=== PATIENT | male | born 1990 ===

== ENCOUNTER 2017-10-20 18:36 | Emergency (ER) | payer SELFPAY ==
--- NOTE | 2017-10-20 19:03 | UC ---
Skin Complaint HPI - HPI Summary HPI Summary: Pt presents with right ear pain and tenderness to right face/neck since yesterday. He also has a red spot on the mid-right side of his forehead. He says he has been under a lot of stress recently with work and general life stressors. He denies fever, chills, hearing loss, vision changes, bleeding, drainage, or recent illness. - History of Current Complaint Hx Obtained From: Patient Onset/Duration: Gradual Onset Timing: Constant Onset Severity: Mild Current Severity: Mild Pain Intensity: 3 Pain Scale Used: 0-10 Numeric <Awais Youssef - Last Filed: 10/21/17 17:18> <Puja Montes De Oca - Last Filed: 10/22/17 07:13> - History of Current Complaint Chief Complaint: UCEar Time Seen by Provider: 10/20/17 19:02 Stated Complaint: EAR AND NECK PAIN - Allergy/Home Medications Allergies/Adverse Reactions: Allergies Allergy/AdvReac Type Severity Reaction Status Date / Time No Known Allergies Allergy Verified 10/20/17 19:01 Review of Systems Constitutional: Negative Skin: Rash - Forehead Eyes: Negative ENT: Ear Ache - Right Respiratory: Negative Cardiovascular: Negative Gastrointestinal: Negative Neurological: Negative Psychological: Negative All Other Systems Reviewed And Are Negative: Yes <Awais Youssef - Last Filed: 10/21/17 17:18> PMH/Surg Hx/FS Hx/Imm Hx Previously Healthy: Yes - Surgical History Surgical History: None - Social History Occupation: Employed Full-time Lives: Alone Alcohol Use: Occasionally Substance Use Type: None Smoking Status (MU): Heavy Every Day Tobacco Smoker <Awais Youssef - Last Filed: 10/21/17 17:18> Physical Exam Triage Information Reviewed: Yes Appearance: Well-Appearing, No Pain Distress, Well-Nourished Vital Signs: Initial Vital Signs Temp 98.1 F 10/20/17 18:57 Pulse 65 10/20/17 18:57 Resp 20 10/20/17 18:57 BP 125/43 10/20/17 18:57 Pulse Ox 100 10/20/17 18:57 Vital Signs Reviewed: Yes Eyes: Positive: Conjunctiva Clear, Other: - EOMI. PERRLA. Negative: Conjunctiva Inflamed, Discharge ENT: Positive: Hearing grossly normal, Pharynx normal, TMs normal, Uvula midline. Negative: Pharyngeal erythema, Nasal congestion, Nasal drainage, TM bulging, TM dull, TM red, Tonsillar swelling, Tonsillar exudate, Hoarse voice, Sinus tenderness Neck: Positive: Supple, Nontender, No Lymphadenopathy Respiratory: Positive: Lungs clear, Normal breath sounds, No respiratory distress, No accessory muscle use Cardiovascular: Positive: RRR, No Murmur, Pulses Normal Neurological: Positive: Alert, Other: - CN II-XII grossly intact Psychological: Positive: Age Appropriate Behavior Skin: Positive: Other - Erythematous mildly blister-like area approx 1.0cm just right to the midline forehead. TTP along V1 of trigeminal nerve. No other lesions appreciated. No bleeding, drainage, crusting, edema, or streaking. <Awais Youssef - Last Filed: 10/21/17 17:18> Vital Signs: Initial Vital Signs Temp 98.1 F 10/20/17 18:57 Pulse 65 10/20/17 18:57 Resp 20 10/20/17 18:57 BP 125/43 10/20/17 18:57 Pulse Ox 100 10/20/17 18:57 <Puja Montes De Oca - Last Filed: 10/22/17 07:13> Course/Dx - Course Course Of Treatment: Suspect his rash is herpes zoster and his ear pain is referred nerve pain. I will start him with prednisone, acyclovir, and neurontin and have him follow up with opthalmology to monitor him for any eye involvement. - Diagnoses Provider Diagnoses: Herpes zoster <Awais Youssef - Last Filed: 10/21/17 17:18> Discharge <Awais Youssef - Last Filed: 10/21/17 17:18> <Puja Montes De Oca - Last Filed: 10/22/17 07:13> - Discharge Plan Condition: Stable Disposition: HOME Prescriptions: Acyclovir* [Zovirax 400 MG TAB*] 800 mg PO 5ID #70 tab Gabapentin [Neurontin] 100 mg PO TID #21 capsule predniSONE TAB* [Deltasone TAB*] 50 mg PO DAILY #5 tab Patient Education Materials: Shingles (ED) Referrals: Sil Fleming RN [Primary Care Provider] - Ang Lucero MD [Medical Doctor] - Additional Instructions: If you develop a fever, shortness of breath, chest pain, new or worsening symptoms - please call your PCP or go to the ED. 1) It is important to follow up with an sash clamp operator (eye doctor) to insure this infection does not interfere with your vision. If you do not have one, please call the physician provided below to schedule an appointment porfirio. Attestation Statement User Type: Provider - I was available for consult. This patient was seen by the advanced practice provider. The patient was not presented to, seen by, or examined by me.-Tiffanie <Puja Montes De Oca - Last Filed: 10/22/17 07:13>
== END 2017-10-20 20:17 | disposition home or self-care (01) ==
LOC: UCEAST 18:36
DX: B02.9 Zoster without complications (principal); F17.210 Nicotine dependence, cigarettes, uncomplicated
CPT/HCPCS: 99212; G0463